=== PATIENT | male | born 1985 | race Caucasian/White ===

== ENCOUNTER 2016-08-08 14:45 | Emergency (ER) | payer SELFPAY | END 2016-08-08 18:04 | disposition home or self-care (01) | LOC: ER 14:45 | PROC: 0HQQXZZ Repair Finger Nail, External Approach (ICD-10-PCS; principal; 2016-08-08) | PROC: 2W3KX1Z Immobilization of Left Finger using Splint (ICD-10-PCS; 2016-08-08) | DX: S62.637A Displaced fracture of distal phalanx of left little finger, initial encounter for closed fracture (principal); S61.317A Laceration without foreign body of left little finger with damage to nail, initial encounter; F17.200 Nicotine dependence, unspecified, uncomplicated; W23.0XXA Caught, crushed, jammed, or pinched between moving objects, initial encounter; Y92.69 Other specified industrial and construction area as the place of occurrence of the external cause; Y99.0 Civilian activity done for income or pay | CPT/HCPCS: 73140-LT; 99283 ==